=== PATIENT | male | born 1980 | race Caucasian/White ===

== ENCOUNTER 2017-09-01 19:12 | Emergency (ER) | payer BC ==
[2017-09-01 19:34] VITALS: BP 140/95
--- NOTE | 2017-09-01 20:29 | ER Document Report ---
HPI - HPI Pain Level: 3 Notes: Patient is a 36-year-old male who presents the ED complaining of nose pain and facial pain status post injury about 2 hours ago. Patient states that he was playing football and he hit his face against the back of someone's head. Patient denies any loss of consciousness, nausea/vomiting. Patient states that he did have a bloody nose which she has since controlled without any difficulties. Patient states that he does have a mild headache, but most of his pain is around his nasal bone. Patient states that he is still eating and drinking without any difficulties. He is still ambulating without any trouble as well. He has not had any changes in behavior or memory. No other concerns or complaints. No other significant past medical history. Patient is not on any blood thinners. Denies any fever, neck pain, changes in vision/speech/ mentation/hearing/behavior, URI, sore throat, chest pain, palpitations, syncope , cough, shortness of breath, wheeze, dyspnea, abdominal pain, nausea/vomiting/ diarrhea, urinary retention, dysuria, hematuria, loss of control of bowel or bladder, numbness/tingling, saddle anesthesia, muscle paralysis/weakness, or rash. - ROS Notes: REVIEW OF SYSTEMS: CONSTITUTIONAL : Denies fever, chills, or sweats. Denies recent illness. EENT: see hpi CARDIOVASCULAR: Denies chest pain. Denies palpitations or racing or irregular heart beat. Denies ankle edema. RESPIRATORY: Denies cough, cold, or chest congestion. Denies shortness of breath, difficulty breathing, or wheezing. GASTROINTESTINAL: Denies abdominal pain or distention. Denies nausea, vomiting , or diarrhea. Denies blood in vomitus, stools, or per rectum. Denies black, tarry stools. Denies constipation. GENITOURINARY: Denies difficulty urinating, painful urination, burning, frequency, blood in urine, or discharge. MUSCULOSKELETAL: see hpi SKIN: Denies rash, lesions or sores. NEUROLOGICAL: Denies confusion or altered mental status. Denies passing out or loss of consciousness. Denies dizziness or lightheadedness. Denies headache. Denies weakness or paralysis or loss of use of either side. Denies problems with gait or speech. Denies sensory loss, numbness, or tingling. Denies seizures. PSYCHIATRIC: Denies anxiety or stress. Denies depression, suicidal ideation, or homicidal ideation. ALL OTHER SYSTEMS REVIEWED AND NEGATIVE. Dictation was performed using [employer] voice recognition software - DERM Skin Color: Normal, [place] Past Medical History - Social History Smoking Status: Unknown if Ever Smoked Family History: Reviewed & Not Pertinent Patient has suicidal ideation: No Patient has homicidal ideation: No - Past Medical History Cardiac Medical History: Reports: Hx Hypertension - Off-and-on, no medication Renal/ Medical History: Denies: Hx Peritoneal Dialysis - Immunizations Hx Diphtheria, Pertussis, Tetanus Vaccination: Yes Vertical Provider Document - CONSTITUTIONAL Agree With Documented VS: Yes Notes: PHYSICAL EXAMINATION: GENERAL: Well-appearing, well-nourished and in no acute distress. A&Ox4. Appears comfortable. HEAD: see face exam. Non-tender to scalp/head. No sotelo sign. EYES: Pupils equal round and reactive to light, extraocular movements intact, sclera anicteric, conjunctiva are normal. Non-tender to palpation of the eyes. + tenderness to the L>R orbit. No obvious step-offs. ENT: EAC clear b/l. TM's intact b/l without erythema, fluid, or perforation. Nares patent and with nonactive bloody discharge. oropharynx clear without exudates. No tonsilar hypertrophy or erythema. Moist mucous membranes. No sinus tenderness. No hemotympanum/CSF discharge. Face: see eye exam as well. + ecchymosis to the nasal bone. + tenderness to the L>R maxillary. No obvious step-offs appreciated. NECK: Normal range of motion, supple without lymphadenopathy. No rigidity. No midline tenderness. Spurling negative. NEXUS negative. Chest: No flail chest. equal rise/fall. Non-tender LUNGS: Breath sounds clear to auscultation bilaterally and equal. No wheezes rales or rhonchi. HEART: Regular rate and rhythm without murmurs, rubs, gallops. Musculoskeletal: Ext b/l: FROM to passive/active. Strength 5+/5. No deficits noted. No bony tenderness of extremities. Back: FROM to passive/active. Strength 5+/5. No vertebral point tenderness, stepoffs, or deformities. No other bony tenderness or ecchymosis. Extremities: No cyanosis, clubbing, or edema b/l. Peripheral pulses 2+. Capillary refill less than 2 seconds. NEUROLOGICAL: NIH 0. MMSE intact. Cranial nerves grossly intact. Normal speech, normal gait. Normal sensory, motor exams. Reflexes 2+ b/l. JOHN's negative. Pronator drift negative. Heel/lizama, finger/nose wnl. Walking on heels /toes and heel to toe wnl. PSYCH: Normal mood, normal affect. SKIN: see exams above. Warm, Dry, normal turgor, no rashes or lesions noted. - INFECTION CONTROL TRAVEL OUTSIDE OF THE [place] IN LAST 30 DAYS: No Course - Re-evaluation Re-evalutation: 09/01/17 22:50 Patient is an afebrile, well-hydrated, 36-year-old male who presents the ED with nasal bone fracture. Vitals are stable. PE is otherwise unremarkable for any focal neurological deficits. CT scan of the face shows a comminuted nasal bone fracture with mild displacement. Low suspicion for any penetrating globe injury, retinal detachment, compartment syndrome of the eye, acute glaucoma, temporal arteritis, meningitis, intracranial hemorrhage, ischemic stroke, or fracture at this time. Patient is aware that his condition can change from initial presentation and that he needs to monitor symptoms closely for any acute changes. I will send him home with a prophylactic antibiotic as precaution. Recheck with ENT next week. Recheck with your PCM next week. Return to the ED with any worsening/concerning symptoms otherwise as reviewed discharge. Patient is in agreement. - Vital Signs Vital signs: Temp Pulse Resp BP Pulse Ox 98.7 F 117 H 16 140/95 H 09/01/17 19:22 09/01/17 19:22 09/01/17 19:22 09/01/17 19:22 Discharge - Discharge Clinical Impression: Fracture closed, nasal bone Qualifiers: Encounter type: initial encounter Qualified Code(s): S02.2XXA - Fracture of nasal bones, initial encounter for closed fracture Condition: Stable Disposition: HOME, SELF-CARE Instructions: Fracture of the Nose ([facility]) Additional Instructions: Rest, Ice Tylenol/ibuprofen as needed Monitor for any acute changes in your symptoms F/u with your PCP in 3-5 days for a recheck Recheck with ENT next week* Return to the ED with any worsening symptoms and/or development of fever, headache, chest pain, palpitations, syncope, shortness of breath, trouble breathing, abdominal pain, n/v/d, blood in stool/urine, loss of control of bowel /bladder, urinary retention, muscle weakness/paralysis, saddle anesthesia, numbness/tingling, or other worsening symptoms that are concerning to you. Prescriptions: Amoxicillin Trihydrate [Amoxil 875 mg Tablet] 1 tab PO BID #10 tablet Forms: Elevated Blood Pressure Referrals: GLENNA GUTIERREZ MD [ACTIVE STAFF] - Follow up in 3-5 days ENT [Provider Group] - Follow up in 3-5 days
--- NOTE | 2017-09-01 20:46 | RADIOLOGY REPORT (SQ) ---
EXAM DESCRIPTION: CT FACIAL AREA WITHOUT COMPLETED DATE/TIME: 09/01/2017 8:37 pm REASON FOR STUDY: orbit/maxillar/nasal bone tenderness s/p injury COMPARISON: None. TECHNIQUE: Noncontrasted images through the facial bones and orbits windowed for bone and soft tissu e. Additional coronal and sagittal reconstructed images reviewed. All images stored on PACS. All CT scanners at this facility use dose modulation, iterative reconstruction, and/or weight based d osing when appropriate to reduce radiation dose to as low as reasonably achievable (ALARA). [facility]: Dose Right [facility]: CareDose [facility]: Dose Right [facility]: Teradose 4D [facility]: [employer] RADIATION DOSE: Up-to-date CT equipment and radiation dose reduction techniques were employed. CTDIv ol: 30.4 mGy. DLP: 642 mGy-cm. mGy. LIMITATIONS: None. FINDINGS: FACIAL BONES: Mildly displaced comminuted fractures are seen of the nasal bones. The valerie ining facial bones remain intact. ORBITS: Intact. No fracture. Symmetric intact globes and retroorbital soft tissues. PARANASAL SINUSES: Clear. No significant mucosal thickening, mass or fluid. No nasal polyps. Maxill clarissa sinus outlets are patent. SOFT TISSUES: No mass or edema. INFERIOR BRAIN: Limited view. No acute findings. OTHER: No other significant finding. IMPRESSION: Mildly displaced comminuted fractures of the nasal bones. TECHNICAL DOCUMENTATION: JOB ID: [id number] Quality ID # [id number]: Final reports with documentation of one or more dose reduction techniques (e.g., Au tomated exposure control, adjustment of the mA and/or kV according to patient size, use of iterative reconstruction technique) 2010 [employer]- All Rights Reserved
== END 2017-09-01 22:57 | disposition home or self-care (01) ==
LOC: ER 19:12
DX: S02.2XXA Fracture of nasal bones, initial encounter for closed fracture (principal); W51.XXXA Accidental striking against or bumped into by another person, initial encounter; Y93.61 Activity, american tackle football; Y92.009 Unspecified place in unspecified non-institutional (private) residence as the place of occurrence of the external cause; R51 Headache; I10 Essential (primary) hypertension
CPT/HCPCS: 70486; 99283

== ENCOUNTER 2018-10-06 20:22 | Emergency (ER) | payer BC ==
[2018-10-06] MEDS ORDERED: NORMAL SALINE 1000 ML 1,000 ML IV ONE (21:09)
[2018-10-06] MEDS ORDERED: DIAZEPAM 5 MG TABLET PO ONE (21:14)
--- NOTE | 2018-10-06 21:39 | ER Document Report ---
ED General - General Chief Complaint: Arm Pain Stated Complaint: ARM PAIN Time Seen by Provider: 10/06/18 21:02 Mode of Arrival: Ambulatory Information source: Patient TRAVEL OUTSIDE OF THE [place] IN LAST 30 DAYS: No - HPI Notes: 37-year-old well-appearing male with a history of DVT and PE who presents to the emergency department for right forearm pain that got worse today. He says the arm "feels fat and I cannot feel bone ". Trauma. Endorses that he has had tingling and burning for the last few weeks when he is sleeping or when he raises his hands over his head but he had a sudden onset of severe pain today with some forearm swelling. He said when the BP cuff inflated it made the pain much worse. He denies any fever, chills, or any other constitutional symptoms. He denies shortness of breath. - Related Data Allergies/Adverse Reactions: diphenhydramine HCl [From Benadryl] Allergy (Verified 10/06/18 22:44) strawberry Allergy (Verified 10/06/18 22:44) Past Medical History - Social History Smoking Status: Current Every Day Smoker Chew tobacco use (# tins/day): No Frequency of alcohol use: None Drug Abuse: None Family History: Reviewed & Not Pertinent Patient has suicidal ideation: No Patient has homicidal ideation: No - Past Medical History Cardiac Medical History: Reports: Hx Hypertension - Off-and-on, no medication Pulmonary Medical History: Reports: Hx Asthma Renal/ Medical History: Denies: Hx Peritoneal Dialysis - Immunizations Hx Diphtheria, Pertussis, Tetanus Vaccination: Yes Review of Systems - Review of Systems Constitutional: No symptoms reported EENT: No symptoms reported Cardiovascular: No symptoms reported. denies: Chest pain Respiratory: No symptoms reported. denies: Short of breath Gastrointestinal: No symptoms reported Genitourinary: No symptoms reported Male Genitourinary: No symptoms reported Musculoskeletal: denies: Muscle pain - Right forearm volar aspect, medial Skin: No symptoms reported Hematologic/Lymphatic: No symptoms reported Neurological/Psychological: No symptoms reported Physical Exam - Vital signs Interpretation: Normal - General General appearance: Appears well, Alert - HEENT Head: Normocephalic, Atraumatic Eyes: Normal Pupils: PERRL - Respiratory Respiratory status: No respiratory distress Chest status: Nontender Breath sounds: Normal Chest palpation: Normal - Cardiovascular Rhythm: Regular Heart sounds: Normal auscultation Murmur: No - Abdominal Inspection: Normal Distension: No distension Bowel sounds: Normal Tenderness: Nontender Organomegaly: No organomegaly - Back Back: Normal, Nontender - Extremities General upper extremity: Normal color, Normal ROM, Normal temperature General lower extremity: Normal inspection, Nontender, Normal color, Normal ROM , Normal temperature, Normal weight bearing. No: Carrie's sign Forearm: Tender - Tender to light palpation, forearm appears with some edema compared to left forearm. Distal pulses intact. Cap refill less than 2 seconds. SILT. - Neurological Neuro grossly intact: Yes Cognition: Normal Orientation: AAOx4 [place] Coma Scale Eye Opening: Spontaneous Martha Coma Scale Verbal: Oriented [place] Coma Scale Motor: Obeys Commands Martha Coma Scale Total: 15 Speech: Normal Motor strength normal: LUE, RUE, LLE, RLE Sensory: Normal - Psychological Associated symptoms: Normal affect, Normal mood - Skin Skin Temperature: Warm Skin Moisture: Dry Skin Color: Normal Course - Re-evaluation Re-evalutation: 10/06/18 22:[address] Haney. Plan to order a venous Doppler right upper extremity. 10/06/18 22:21 Went and discussed with patient that plan is to order a right upper extremity venous Doppler. Patient endorsed discomfort in the arm. Ordered Tylenol 975 mg p.o. 10/07/18 00:00 No evidence of DVT right upper extremity. Will discuss with patient that his numbness and tingling is most likely secondary to musculoskeletal pain, probably related to muscle inflammation impinging on a nerve. Discharge - Discharge Clinical Impression: Arm pain Qualifiers: Laterality: right Qualified Code(s): M79.601 - Pain in right arm Condition: Good Disposition: HOME, SELF-CARE Instructions: Arm Pain, Nonspecific ([facility]) Additional Instructions: Seen in the emergency department today for right arm pain. Because of your history of DVT and PE we got the Doppler which was negative. That is reassuring. Your pain most likely stems from your right shoulder nerve is impinged. It is okay to take ibuprofen 800 mg 4 times a day, and Tylenol 1000 mg up to 4 times a day for pain. If your arm becomes swollen, turns blue, gets cold to the touch, or urine excruciating pain please immediately return to the emergency room.
[2018-10-06] MEDS ORDERED: ACETAMINOPHEN 325 MG TABLET PO ONE (22:20)
[2018-10-07 00:19] VITALS: BP 140/75
--- NOTE | 2018-10-07 07:48 | RADIOLOGY REPORT (SQ) ---
EXAM DESCRIPTION: VENOUS UNILATERAL UPPER COMPLETED DATE/TIME: 10/06/2018 11:54 pm REASON FOR STUDY: pain and swelling COMPARISON: None. TECHNIQUE: Dynamic and static guillen scale and color images acquired of the right arm venous system. S elected spectral images acquired with additional compression and augmentation maneuvers. The contrala teral subclavian vein and internal jugular vein were also imaged. Images stored on PACS. LIMITATIONS: None. FINDINGS: INTERNAL JUGULAR VEIN: Normal phasicity, compression, augmentation. No visualized echogeni c material on guillen scale. No defects on color images. Comparison opposite side normal. SUBCLAVIAN VEIN: Normal compression, augmentation. No visualized echogenic material on guillen scale. No defects on color images. AXILLARY VEIN: Normal compression, augmentation. No visualized echogenic material on guillen scale. No d efects on color images. BRACHIAL VEIN: Normal compression, augmentation. No visualized echogenic material on guillen scale. No d efects on color images. BASILIC VEIN: Normal compression, augmentation. No visualized echogenic material on guillen scale. No de fects on color images. CEPHALIC VEIN: Normal compression, augmentation. No visualized echogenic material on guillen scale. No d efects on color images. OTHER: No other significant finding. CONTRALATERAL SUBCLAVIAN VEIN AND INTERNAL JUGULAR VEIN: Normal phasicity, compression and augmentation. No visualized echogenic material on guillen scale. No de fects on color images. IMPRESSION: 1. NO EVIDENCE DVT OR SVT RIGHT ARM. TECHNICAL DOCUMENTATION: JOB ID: [id number] [employer]- All Rights Reserved Reading location - IP/workstation name: [email or web address]
== END 2018-10-07 00:18 | disposition home or self-care (01) ==
LOC: ER 20:22
DX: M79.18 Myalgia, other site (principal); R20.2 Paresthesia of skin; R20.0 Anesthesia of skin; R20.8 Other disturbances of skin sensation; I10 Essential (primary) hypertension; J45.909 Unspecified asthma, uncomplicated; F17.200 Nicotine dependence, unspecified, uncomplicated; Z86.718 Personal history of other venous thrombosis and embolism; Z88.8 Allergy status to other drugs, medicaments and biological substances; Z91.018 Allergy to other foods
CPT/HCPCS: 93971; 99284

== ENCOUNTER 2018-12-14 11:58 | Inpatient (IN) | payer BC ==
[2018-12-14] MEDS ORDERED: DILTIAZEM HCL INJ 25 MG/5 ML VIAL ONE (12:17)
[2018-12-14] MEDS ORDERED: ADENOSINE INJ/PF 6 MG/2 ML SDV IV ONE ×3 (12:17→12:32)
[2018-12-14] MEDS ORDERED: ASPIRIN 81 MG TABLET, CHEWABLE PO ONE (12:18)
[2018-12-14] MEDS ORDERED: DILTIAZEM HCL/D5W 125 MG/125 ML RTUINJ IV ONE (12:20)
[2018-12-14] MEDS ORDERED: DILTIAZEM HCL/D5W 125 MG/125 ML RTUINJ IV PRN (12:21)
[2018-12-14] MEDS ORDERED: DILTIAZEM HCL INJ 25 MG/5 ML VIAL IV ONE (12:21)
[2018-12-14 12:47] LABS: ABSOLUTE BASOPHILS # (AUTO) 0.1 10^3/uL (0.0-0.2); ABSOLUTE EOSINOPHILS # (AUTO) 0.2 10^3/uL (0.0-0.6); ABSOLUTE LYMPHOCYTES (AUTO) 5.1 10^3/uL (0.5-4.7); ABSOLUTE MONOCYTES (AUTO) 0.8 10^3/uL (0.1-1.4); ABSOLUTE NEUT (AUTO) 3.6 10^3/uL (1.7-8.2); BASOPHILS % (AUTO) 0.7 % (0-2); EOSINOPHILS % (AUTO) 2.3 % (0-6); HEMOGLOBIN 17.3 g/dL (13.5-17.0); LYMPHOCYTES % (AUTO) 51.5 % (13-45); MEAN CORPUSCULAR HEMOGLOBIN 29.7 pg (27.0-33.4); MEAN CORPUSCULAR HGB CONC 34.6 g/dL (32.0-36.0); MEAN CORPUSCULAR VOLUME 86 fl (80-97); MONOCYTES % (AUTO) 8.4 % (3-13); PLATELET COUNT 326 10^3/uL (150-450); RED BLOOD COUNT 5.82 10^6/uL (4.35-5.55); RED CELL DISTRIBUTION WIDTH 12.7 % (11.5-14.0); SEGMENTED NEUTROPHILS % (AUTO) 37.1 % (42-78); TOTAL CELLS COUNTED % (AUTO) 100 %; WHITE BLOOD COUNT 9.8 10^3/uL (4.0-10.5)
[2018-12-14 12:54] LABS: INTERNATIONAL RATION (INR) 0.89; PARTIAL THROMBOPLASTIN TIME 29.4 SEC (23.5-35.8); PROTHROMBIN TIME 12.5 SEC (11.4-15.4)
--- NOTE | 2018-12-14 13:02 | RADIOLOGY REPORT (SQ) ---
EXAM DESCRIPTION: CHEST SINGLE VIEW COMPLETED DATE/TIME: 12/14/2018 12:35 pm REASON FOR STUDY: svt COMPARISON: Two-view chest 12/12/2013 EXAM PARAMETERS: NUMBER OF VIEWS: One view. TECHNIQUE: Single frontal radiographic view of the chest acquired. RADIATION DOSE: NA LIMITATIONS: None. FINDINGS: LUNGS AND PLEURA: No opacities, masses or pneumothorax. No pleural effusion. MEDIASTINUM AND HILAR STRUCTURES: No masses. Contour normal. HEART AND VASCULAR STRUCTURES: Heart normal in size. Normal vasculature. BONES: No acute findings. HARDWARE: None in the chest. OTHER: No other significant finding. IMPRESSION: NO ACUTE RADIOGRAPHIC FINDING IN THE CHEST. TECHNICAL DOCUMENTATION: JOB ID: [id number] [employer]- All Rights Reserved Reading location - IP/workstation name: [email or web address]
[2018-12-14 13:10] LABS: ALANINE AMINOTRANSFERASE 35 U/L (21-72); ALBUMIN 4.8 g/dL (3.5-5.0); ALKALINE PHOSPHATASE 98 U/L (38-126); ANION GAP 9 (5-19); ASPARTATE AMINO TRANSFERASE 30 U/L (17-59); BILIRUBIN,DIRECT 0.3 mg/dL (0.0-0.4); BILIRUBIN,TOTAL 1.4 mg/dL (0.2-1.3); BLOOD UREA NITROGEN 20 mg/dL (7-20); CALCIUM 9.3 mg/dL (8.4-10.2); CARBON DIOXIDE 24 mmol/L (22-30); CHLORIDE 110 mmol/L (98-107); CREATINE KINASE 177 U/L (55-170); GLUCOSE 108 mg/dL (75-110); LIPASE 140.7 U/L (23-300); POTASSIUM 4.2 mmol/L (3.6-5.0); SODIUM 142.6 mmol/L (137-145)
[2018-12-14 13:22] LABS: CREATINE KINASE MB 1.33 ng/mL (<4.55)
[2018-12-14 13:24] LABS: TROPONIN I < 0.012 ng/mL
[2018-12-14 13:26] LABS: FREE T4 (FREE THYROXINE) 1.42 ng/dL (0.78-2.19)
[2018-12-14 13:40] LABS: THYROID STIMULATING HORMONE 1.38 uIU/mL (0.47-4.68)
[2018-12-14 13:47] LABS: APPEARANCE,URINE CLEAR; BILIRUBIN,URINE NEGATIVE (NEGATIVE); COLOR,URINE STRAW; GLUCOSE, URINE NEGATIVE (NEGATIVE); KETONES,URINE NEGATIVE (NEGATIVE); LEUKOCYTE ESTERASE,URINE NEGATIVE (NEGATIVE); NITRITE,URINE NEGATIVE (NEGATIVE); PROTEIN,URINE NEGATIVE (NEGATIVE); URINE SPECIFIC GRAVITY 1.005; UROBILINOGEN,URINE NEGATIVE mg/dL (<2.0)
[2018-12-14 13:59] LABS: URINE AMPHETAMINES SCREEN NEGATIVE; URINE BARBITURATES SCREEN NEGATIVE; URINE BENZODIAZEPINES SCREEN NEGATIVE; URINE COCAINE SCREEN NEGATIVE; URINE MARIJUANA (THC) SCREEN NEGATIVE; URINE METHADONE SCREEN NEGATIVE; URINE PHENCYCLIDINE SCREEN NEGATIVE
--- NOTE | 2018-12-14 14:33 | RADIOLOGY REPORT (SQ) ---
EXAM DESCRIPTION: CTA CHEST COMPLETED DATE/TIME: 12/14/2018 2:03 pm REASON FOR STUDY: cp svt sob . Shortness of breath, chest pain. COMPARISON: Chest x-ray 12/14/2018. CT abdomen and pelvis 12/13/2013. TECHNIQUE: CT scan of the chest performed using helical scanning technique with dynamic intravenous contrast injection. Images reviewed with lung, soft tissue and bone windows. Reconstructed coronal and sagittal MPR images reviewed. Additional 3 dimensional post-processing performed to develop Maximal Intensity Projection images (FL P). All images stored on PACS. All CT scanners at this facility use dose modulation, iterative reconstruction, and/or weight based d osing when appropriate to reduce radiation dose to as low as reasonably achievable (ALARA). [facility]: Dose Right [facility]: CareDose [facility]: Dose Right [facility]: Teradose 4D [facility]: [employer] CONTRAST TYPE AND DOSE: contrast/concentration: Isovue 350.00 mg/ml; Total Contrast Delivered: 90.0 ml; Total Saline Delivered: 110.0 ml Contrast bolus optimized for the pulmonary arteries. Not diagnostic for the aorta. RENAL FUNCTION: Creatinine 1.03 RADIATION DOSE: CT Rad equipment meets quality standard of care and radiation dose reduction techniq ues were employed. CTDIvol: 32.5 - 49.6 mGy. DLP: 1375 mGy-cm. . LIMITATIONS: None. FINDINGS: LUNGS AND PLEURA: No consolidation, pneumothorax or pleural effusion. There is mild diffu se septal thickening at the right upper lobe. AORTA AND GREAT VESSELS: No thoracic aortic aneurysm. Contrast bolus not optimized for the aorta. HEART: No pericardial effusion. Scattered coronary artery calcifications. PULMONARY ARTERIES: No emboli visualized in the main pulmonary arteries or the segmental branches. HILAR AND MEDIASTINAL STRUCTURES: No identified masses or abnormal nodes. HARDWARE: None in the chest. UPPER ABDOMEN: No significant findings. Limited exam. BONES: No acute findings. 3D MIPS: Confirm above findings. IMPRESSION: No pulmonary emboli. Mild diffuse septal thickening at the right upper lobe, may be sec ondary to interstitial edema or pneumonitis. COMMENT: Quality ID # [id number]: Final reports with documentation of one or more dose reduction techniques (e.g., Automated exposure control, adjustment of the mA and/or kV according to patient size, use of iterative reconstruction technique) TECHNICAL DOCUMENTATION: JOB ID: [id number]- All Rights Reserved Reading location - IP/workstation name: [email or web address]
[2018-12-14] MEDS ORDERED: DILTIAZEM HCL 60 MG TABLET PO ONE (14:40)
--- NOTE | 2018-12-14 14:48 | ER Document Report ---
ED General - General Chief Complaint: Chest Pain Stated Complaint: CHEST PAIN Time Seen by Provider: 12/14/18 12:18 TRAVEL OUTSIDE OF THE [place] IN LAST 30 DAYS: No - HPI Patient complains to provider of: Chest pain Notes: Patient coming in for evaluation of chest pain. Patient states he was at work when he started feeling unwell pain in his chest. Patient also states mild shor tness of breath. Patient in triage area was found to have a heart rate of 240. Patient was brought back to the ER for further evaluation. Upon entrance into the trauma bay #2 patient slightly tachypneic stating that he still having mild chest pain denies any trauma denies any fever chills nausea vomiting diarrhea states he has a history of PE in 2007 due to a DVT patient states he was on Lovenox shots and then transitioned over the Coumadin for a brief period of time. Patient denies any recent travel denies any excessive caffeine use denies any illicit drug use. IVs were established blood pressure seems to be stable at this time patient underwent multiple vagal maneuvers with no conversion therefore adenosine was administered - Related Data Allergies/Adverse Reactions: diphenhydramine HCl [From Benadryl] Allergy (Verified 12/14/18 14:49) strawberry Allergy (Verified 12/14/18 14:49) Past Medical History - Social History Smoking Status: Current Every Day Smoker Family History: Reviewed & Not Pertinent Patient has suicidal ideation: No Patient has homicidal ideation: No - Past Medical History Cardiac Medical History: Reports: Hx Hypertension - Off-and-on, no medication Pulmonary Medical History: Reports: Hx Asthma Renal/ Medical History: Denies: Hx Peritoneal Dialysis - Immunizations Hx Diphtheria, Pertussis, Tetanus Vaccination: Yes Review of Systems - Review of Systems Constitutional: No symptoms reported EENT: No symptoms reported Cardiovascular: Chest pain, Dyspnea Respiratory: No symptoms reported Gastrointestinal: No symptoms reported Genitourinary: No symptoms reported Male Genitourinary: No symptoms reported Musculoskeletal: No symptoms reported Skin: No symptoms reported Hematologic/Lymphatic: No symptoms reported Neurological/Psychological: No symptoms reported -: Yes All other systems reviewed and negative Physical Exam - Vital signs Vitals: Pulse Ox 99 12/14/18 12:12 Interpretation: Tachycardic - General General appearance: Appears well, Alert - HEENT Head: Normocephalic, Atraumatic Eyes: Normal Pupils: PERRL - Respiratory Respiratory status: No respiratory distress Chest status: Nontender Breath sounds: Normal Chest palpation: Normal - Cardiovascular Rhythm: Tachycardia Heart sounds: Normal auscultation Murmur: No - Abdominal Inspection: Normal Distension: No distension Bowel sounds: Normal Tenderness: Nontender Organomegaly: No organomegaly - Back Back: Normal, Nontender - Extremities General upper extremity: Normal inspection, Nontender, Normal color, Normal ROM, Normal temperature General lower extremity: Normal inspection, Nontender, Normal color, Normal ROM, Normal temperature, Normal weight bearing. No: Carrie's sign - Neurological Neuro grossly intact: Yes Cognition: Normal Orientation: AAOx4 [place] Coma Scale Eye Opening: Spontaneous [place] Coma Scale Verbal: Oriented Martha Coma Scale Motor: Obeys Commands Martha Coma Scale Total: 15 Speech: Normal Motor strength normal: LUE, RUE, LLE, RLE Sensory: Normal - Psychological Associated symptoms: Normal affect, Normal mood - Skin Skin Temperature: Warm Skin Moisture: Dry Skin Color: Normal Course - Re-evaluation Re-evalutation: 12/14/18 15:26 Administration of adenosine 6 mg followed by 12 mg that showed underlying atrial fibrillation with no conversion patient started on Cardizem drip with bolus 25 mg rate control was obtained with this measure. Patient laboratory studies to obtain consultation with hemoglobin 17 however it looks lites are negative troponin negative drug screen TSH free T4 and CTA of the patient's chest were all negative. Discussed with hospitalist team Dr. Woods we will send the patient for further evaluation agrees with peligio Prui at this time as patient has been stable and titration down off his Cardizem drip - Vital Signs Vital signs: Temp Pulse Resp BP Pulse Ox 97.3 F 9 L 136/99 H 97 12/14/18 12:28 12/14/18 12:42 12/14/18 12:42 12/14/18 12:42 - Laboratory Result Diagrams: 12/14/18 12:22 12/14/18 12:22 Laboratory results interpreted by me: 12/14/18 12/14/18 12:22 12:22 RBC 5.82 H Hgb 17.3 H Seg Neutrophils % 37.1 L Lymphocytes % 51.5 H Absolute Lymphocytes 5.1 H Chloride 110 H Total Bilirubin 1.4 H Creatine Kinase 177 H Discharge - Discharge Clinical Impression: New onset a-fib Chest pain Qualifiers: Chest pain type: unspecified Qualified Code(s): R07.9 - Chest pain, unspecified Condition: Good Disposition: ADMITTED INPATIENT Admitting Provider: Hospitalist - [facility] Unit Admitted: Telemetry
[2018-12-14] MEDS ORDERED: PROMETHAZINE HCL 25 MG TABLET PO PRN (16:11)
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
[2018-12-14] MEDS: METOPROLOL TARTRATE 25 MG TABLET PO SCH (18:00)
--- NOTE | 2018-12-14 19:51 | XCELERA REPORT ---
[address] [address] Transthoracic Echocardiogram Report Name: LORENA BURGESS Age: 37 yrs Gender: Male : 1980 Patient Status: Inpatient Patient Location: [place] [address]^A Study Date: 12/14/2018 05:02 PM Height: 76 in Weight: 299 lb BSA: 2.6 m2 Reason For Study: Afib Ordering Physician: RENE HERNANDEZ Performed By: Tyshawn Wright Interpretation Summary Technoligist Comments: patient difficult to scan due to labored breathing, apicals difficult to obtain, tried breathing techniques and different positioning. Lack of contrast enhancement limits interpretation for thrombus, wall motion and accurate estimation of LVEF. Study quality suboptimal with many poor images [id number] detailed cardiac evaluation. LV not well visualized but LVEF apppears normal at 60-65%. RV systolic function appears normal. The aortic valve opens well. RVSP could not be estimated. Pericardium not well visualized but no obvious pericardial effusion noted. IVC not well visualized but likely normal sized. The aortic root is normal size. MMode/2D Measurements & Calculations RVDd: 3.4 cm LVIDd: 4.6 cm FS: 45.3 % Ao root diam: 3.8 cm IVSd: 1.1 cm LVIDs: 2.5 cm EDV(Teich): 97.2 mlAo root area: LVPWd: 1.1 cm ESV(Teich): 22.6 ml 11.1 cm2 EF(Teich): 76.7 % LA dimension: 3.8 cm LVOT diam: 2.3 cmLVLd ap4: 9.3 cm SV(MOD-sp4): LVOT area: EDV(MOD-sp4): 80.0 ml 137.0 ml 4.1 cm2 LVLs ap4: 8.4 cm ESV(MOD-sp4): 57.0 ml EF(MOD-sp4): 58.4 % Doppler Measurements & Calculations MV E max tierney: MV P1/2t max tierney: Ao V2 max: LV V1 max P.1 cm/sec 114.7 cm/sec 91.6 cm/sec 2.7 mmHg MV A max tierney: MV P1/2t: 47.1 msec Ao max P.4 mmHgLV V1 mean P.0 cm/sec MVA(P1/2t): 4.7 cm2 Ao V2 mean: 1.6 mmHg MV E/A: 1.8 MV dec slope: 66.8 cm/sec LV V1 max: Ao mean P.9 cm/sec 712.7 cm/sec2 2.0 mmHg LV V1 mean: MV dec time: 0.14 sec Ao V2 VTI: 17.7 cm 57.9 cm/sec JUANITA(I,D): 3.7 cm2 LV V1 VTI: 15.9 cm JUANITA(V,D): 3.7 cm2 SV(LVOT): 65.8 ml PA V2 max: MV P1/2t-pr_phl: 101.7 cm/sec 47.1 msec PA max P.1 mmHg Left Ventricle LV not well visualized but LVEF appaers normal at 60-65%. The left ventricular ejection fraction is normal. Right Ventricle The right ventricular systolic function is normal. Atria Right atrium not well visualized secondary to technical limitations. The left atrium is not well visualized secondary to technical limitations. Mitral Valve MV leaflets not well visualized but MV appears to open well. Aortic Valve The aortic valve is not well visualized secondary to technical limitations. The aortic valve opens well. There is a peak gradient of 3 mm of Hg. Tricuspid Valve The tricuspid valve is not well visualized secondary to technical limitations. Tricuspid regurgitation jet envelope not well defined to measure RV systolic pressure accurately. RVSP could not be estimated. Pulmonic Valve The pulmonic valve is not well visualized. Great Vessels The aortic root is normal size. The aortic root is not well visualized. IVC not well visualized but likely normal sized. Effusions Pericardium not well visualized but no obvious pericardial effusion noted. : RENE HERNANDEZ > Luis Montano
--- NOTE | 2018-12-14 21:39 | EKG REPORT ---
SEVERITY:- ABNORMAL ECG - ATRIAL FIBRILLATION, V-RATE 75-174 NONSPECIFIC REPOL ABNORMALITY, LATERAL LEADS : Confirmed by: Alona Beavers MD 14-Dec-2018 21:38:47
--- NOTE | 2018-12-14 21:39 | EKG REPORT ---
SEVERITY:- ABNORMAL ECG - SUPRAVENTRICULAR TACHYCARDIA REPOLARIZATION ABNORMALITY, PROB RATE RELATED : Confirmed by: Alona Beavers MD 14-Dec-2018 21:38:55
--- NOTE | 2018-12-14 21:39 | EKG REPORT ---
SEVERITY:- NORMAL ECG - SINUS RHYTHM : Confirmed by: Alona Beavers MD 14-Dec-2018 21:38:43
[2018-12-14] MEDS: FAMOTIDINE 20 MG TABLET PO SCH (21:40)
[2018-12-14] MEDS: HEPARIN SOD (PORCINE) 5,000 UNIT/ML 1 ML SYRINGE SUBCUT SCH (21:41)
[2018-12-15] MEDS: HEPARIN SOD (PORCINE) 5,000 UNIT/ML 1 ML SYRINGE SUBCUT SCH (05:09)
[2018-12-15 05:50] LABS: ABSOLUTE EOSINOPHILS # (AUTO) 0.2 10^3/uL (0.0-0.6); ABSOLUTE LYMPHOCYTES (AUTO) 3.7 10^3/uL (0.5-4.7); ABSOLUTE MONOCYTES (AUTO) 0.5 10^3/uL (0.1-1.4); ABSOLUTE NEUT (AUTO) 2.8 10^3/uL (1.7-8.2); BASOPHILS % (AUTO) 0.4 % (0-2); EOSINOPHILS % (AUTO) 3.2 % (0-6); HEMATOCRIT 42.2 % (37.9-51.0); LYMPHOCYTES % (AUTO) 50.6 % (13-45); MEAN CORPUSCULAR HEMOGLOBIN 30.3 pg (27.0-33.4); MEAN CORPUSCULAR HGB CONC 35.2 g/dL (32.0-36.0); MEAN CORPUSCULAR VOLUME 86 fl (80-97); MONOCYTES % (AUTO) 6.9 % (3-13); PLATELET COUNT 247 10^3/uL (150-450); RED CELL DISTRIBUTION WIDTH 12.8 % (11.5-14.0); SEGMENTED NEUTROPHILS % (AUTO) 38.9 % (42-78); TOTAL CELLS COUNTED % (AUTO) 100 %; WHITE BLOOD COUNT 7.2 10^3/uL (4.0-10.5)
[2018-12-15 05:59] LABS: HEMOGLOBIN 14.9 g/dL (13.5-17.0)
[2018-12-15 06:24] LABS: ALANINE AMINOTRANSFERASE 33 U/L (21-72); ALBUMIN 3.8 g/dL (3.5-5.0); ALKALINE PHOSPHATASE 72 U/L (38-126); ANION GAP 5 (5-19); ASPARTATE AMINO TRANSFERASE 21 U/L (17-59); BILIRUBIN,DIRECT 0.2 mg/dL (0.0-0.4); BILIRUBIN,TOTAL 1.1 mg/dL (0.2-1.3); BLOOD UREA NITROGEN 19 mg/dL (7-20); CALCIUM 8.8 mg/dL (8.4-10.2); CARBON DIOXIDE 24 mmol/L (22-30); CHLORIDE 112 mmol/L (98-107); CHOLESTEROL 151.38 mg/dL (0-200); GLUCOSE 96 mg/dL (75-110); POTASSIUM 4.4 mmol/L (3.6-5.0); SODIUM 141.1 mmol/L (137-145); TOTAL PROTEIN 6.4 g/dL (6.3-8.2); TRIGLYCERIDES 69 mg/dL (<150)
[2018-12-15 06:34] LABS: DIRECT LDL 116 mg/dL (<100)
--- NOTE | 2018-12-15 09:20 | PDOC PROGRESS REPORT ---
Subjective Progress Note for:: 12/15/18 Subjective:: Patient denies any overnight chest pain or palpitations. According to the staff patient converted to sinus rhythm sometime last evening. Overnight patient's cardiac biomarkers came elevated and we were notified this morning about positive troponin. Reason For Visit: NEW ONSET AFIB with elevated cardiac biomarkers Physical Exam Vital Signs: Temp Pulse Resp BP Pulse Ox 97.3 F 73 18 129/82 H 96 12/15/18 07:58 12/15/18 07:58 12/15/18 07:58 12/15/18 07:58 12/15/18 07:58 Intake & Output 12/14/18 12/15/18 12/16/18 06:59 06:59 06:59 Intake Total 50 Balance 50 Weight 137.1 kg General appearance: PRESENT: no acute distress Pulses: PRESENT: normal carotid pulses, normal radial pulses, normal femoral pulses, +2 pedal pulses bilateral Vascular exam: PRESENT: normal capillary refill GI/Abdominal exam: PRESENT: normal bowel sounds Musculoskeletal exam: PRESENT: ambulatory Neurological exam: PRESENT: alert, awake, oriented to person, oriented to place, oriented to time, oriented to situation Results Laboratory Results: 12/15/18 04:39 12/15/18 04:39 12/14/18 12/14/18 12/14/18 12:22 12:22 12:22 WBC 9.8 RBC 5.82 H Hgb 17.3 H Hct 50.0 MCV 86 MCH 29.7 MCHC 34.6 RDW 12.7 Plt Count 326 Seg Neutrophils % 37.1 L Lymphocytes % 51.5 H Monocytes % 8.4 Eosinophils % 2.3 Basophils % 0.7 Absolute Neutrophils 3.6 Absolute Lymphocytes 5.1 H Absolute Monocytes 0.8 Absolute Eosinophils 0.2 Absolute Basophils 0.1 Sodium 142.6 Potassium 4.2 Chloride 110 H Carbon Dioxide 24 Anion Gap 9 BUN 20 Creatinine 1.03 Est GFR ( Amer) > 60 Est GFR (Non-Af Amer) > 60 Glucose 108 Calcium 9.3 Magnesium 2.1 Total Bilirubin 1.4 H AST 30 ALT 35 Alkaline Phosphatase 98 Total Protein 8.0 Albumin 4.8 Triglycerides Cholesterol LDL Cholesterol Direct VLDL Cholesterol HDL Cholesterol Lipase 140.7 TSH 1.38 Free T4 1.42 Urine Color Urine Appearance Urine pH Ur Specific [place] Urine Protein Urine Glucose (UA) Urine Ketones Urine Blood Urine Nitrite Ur Leukocyte Esterase Urine WBC (Auto) Urine RBC (Auto) 12/14/18 12/15/18 12/15/18 13:27 04:39 04:39 WBC 7.2 RBC 4.90 Hgb 14.9 D Hct 42.2 MCV 86 MCH 30.3 MCHC 35.2 RDW 12.8 Plt Count 247 Seg Neutrophils % 38.9 L Lymphocytes % 50.6 H Monocytes % 6.9 Eosinophils % 3.2 Basophils % 0.4 Absolute Neutrophils 2.8 Absolute Lymphocytes 3.7 Absolute Monocytes 0.5 Absolute Eosinophils 0.2 Absolute Basophils 0.0 Sodium 141.1 Potassium 4.4 Chloride 112 H Carbon Dioxide 24 Anion Gap 5 BUN 19 Creatinine 0.96 Est GFR ( Amer) > 60 Est GFR (Non-Af Amer) > 60 Glucose 96 Calcium 8.8 Magnesium 2.3 Total Bilirubin 1.1 AST 21 ALT 33 Alkaline Phosphatase 72 Total Protein 6.4 Albumin 3.8 Triglycerides 69 Cholesterol 151.38 LDL Cholesterol Direct 116 H VLDL Cholesterol 14.0 HDL Cholesterol 28 L Lipase TSH Free T4 Urine Color STRAW Urine Appearance CLEAR Urine pH 6.0 Ur Specific [place] 1.005 Urine Protein NEGATIVE Urine Glucose (UA) NEGATIVE Urine Ketones NEGATIVE Urine Blood NEGATIVE Urine Nitrite NEGATIVE Ur Leukocyte Esterase NEGATIVE Urine WBC (Auto) 0 Urine RBC (Auto) 0 12/14/18 12/14/18 12/14/18 12:22 12:22 19:30 Creatine Kinase 177 H CK-MB (CK-2) 1.33 Troponin I < 0.012 1.180 Impressions: Chest X-Ray 12/14/18 12:19 IMPRESSION: NO ACUTE RADIOGRAPHIC FINDING IN THE CHEST. Chest/Abdomen CTA 12/14/18 12:24 IMPRESSION: No pulmonary emboli. Mild diffuse septal thickening at the right upper lobe, may be secondary to interstitial edema or pneumonitis. Assessment & Plan - Diagnosis (1) New onset a-fib Is this a current diagnosis for this admission?: Yes (2) Chest pain Qualifiers: Chest pain type: unspecified Qualified Code(s): R07.9 - Chest pain, unspecified (4) Tobacco abuse Is this a current diagnosis for this admission?: Yes - Notes Notes: 37-year-old male with past medical history of chronic nicotine abuse and family history of premature CAD with his father having heart attack in his 40s admitted with chest pain radiating to the jaw and some left arm numbness and initially found to be in SVT which converted to atrial fibrillation after adenosine and subsequently found to have elevated cardiac biomarkers. Cardiac tachyarrhythmias can lead to elevated cardiac biomarkers but however if he consider his family history and lifestyle he does have risk factors for atherosclerotic cardiovascular disease and in view of that it is important to rule out obstructive coronary artery disease despite his relatively young age. We discussed with the patient the risk and benefits of an invasive coronary workup with cardiac catheterization which will rule out obstructive coronary artery disease and patient has verbalized understanding of the risks/benefits and wants to proceed with invasive coronary workup. For now we will recommend to keep the patient on aspirin, add statin for risk factor reduction, beta- yvonne therapy and therapeutic Lovenox at this point of time until cardiac cath performed. Will consult with local bleach supervisor to arrange for cardiac catheterization at this facility or else transfer to another facility for the same. Dr. Beavers will resume cardiology care for patient from tomorrow onwards. - Time Time with patient: Greater than 35 minutes Smoking Education Provided: Over 3 minutes
[2018-12-15] MEDS: ASPIRIN 81 MG TABLET, CHEWABLE PO SCH (10:16)
[2018-12-15] MEDS: FAMOTIDINE 20 MG TABLET PO SCH ×2 (10:16→21:20)
[2018-12-15] MEDS: METOPROLOL TARTRATE 25 MG TABLET PO SCH ×2 (10:16→18:25)
[2018-12-15] MEDS: ATORVASTATIN CALCIUM 40 MG TABLET PO SCH (12:20)
[2018-12-15] MEDS: ENOXAPARIN SODIUM INJ 150 MG/1 ML DISP.SYRIN SUBCUT SCH ×2 (12:21→23:25)
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
[2018-12-16 00:07] LABS: CREATINE KINASE MB 1.03 ng/mL (<4.55); TROPONIN I 0.152 ng/mL
[2018-12-16 05:48] LABS: HEMATOCRIT 45.5 % (37.9-51.0); HEMOGLOBIN 15.8 g/dL (13.5-17.0); MEAN CORPUSCULAR HEMOGLOBIN 29.7 pg (27.0-33.4); MEAN CORPUSCULAR HGB CONC 34.8 g/dL (32.0-36.0); MEAN CORPUSCULAR VOLUME 85 fl (80-97); PLATELET COUNT 215 10^3/uL (150-450); RED BLOOD COUNT 5.34 10^6/uL (4.35-5.55); RED CELL DISTRIBUTION WIDTH 12.6 % (11.5-14.0); WHITE BLOOD COUNT 6.6 10^3/uL (4.0-10.5)
[2018-12-16 06:18] LABS: ALANINE AMINOTRANSFERASE 29 U/L (21-72); ALBUMIN 3.9 g/dL (3.5-5.0); ALKALINE PHOSPHATASE 72 U/L (38-126); ANION GAP 9 (5-19); ASPARTATE AMINO TRANSFERASE 19 U/L (17-59); BILIRUBIN,DIRECT 0.2 mg/dL (0.0-0.4); BILIRUBIN,TOTAL 1.1 mg/dL (0.2-1.3); BLOOD UREA NITROGEN 19 mg/dL (7-20); CALCIUM 8.9 mg/dL (8.4-10.2); CARBON DIOXIDE 23 mmol/L (22-30); CHLORIDE 111 mmol/L (98-107); CREATINE KINASE 81 U/L (55-170); GLUCOSE 98 mg/dL (75-110); POTASSIUM 4.6 mmol/L (3.6-5.0); SODIUM 143.1 mmol/L (137-145); TOTAL PROTEIN 6.6 g/dL (6.3-8.2)
[2018-12-16 06:20] LABS: CREATINE KINASE MB 0.84 ng/mL (<4.55); TROPONIN I 0.143 ng/mL
--- NOTE | 2018-12-16 07:27 | EKG REPORT ---
SEVERITY:- NORMAL ECG - SINUS RHYTHM : Confirmed by: Alona Beavers MD 16-Dec-2018 07:26:48
--- NOTE | 2018-12-16 07:27 | EKG REPORT ---
SEVERITY:- NORMAL ECG - SINUS RHYTHM : Confirmed by: Alona Beavers MD 16-Dec-2018 07:26:44
[2018-12-16] MEDS: ATORVASTATIN CALCIUM 40 MG TABLET PO SCH (10:10)
[2018-12-16] MEDS: ASPIRIN 81 MG TABLET, CHEWABLE PO SCH (10:10)
[2018-12-16] MEDS: FAMOTIDINE 20 MG TABLET PO SCH ×2 (10:10→23:06)
[2018-12-16] MEDS: METOPROLOL TARTRATE 25 MG TABLET PO SCH ×2 (10:10→18:28)
[2018-12-16] MEDS: ENOXAPARIN SODIUM INJ 150 MG/1 ML DISP.SYRIN SUBCUT SCH ×2 (10:12→23:06)
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
[2018-12-16 12:52] LABS: CREATINE KINASE MB 0.76 ng/mL (<4.55); TROPONIN I 0.078 ng/mL
--- NOTE | 2018-12-16 22:33 | Progress Note ---
Provider Note Provider Note: CARDIOLOGY PROGRESS NOTE by Dr. Alona Beavers on 12/16/2018. SUBJECTIVE: The patient denies any chest pain or discomfort. There is no shortness of breath. There is no PND orthopnea. The patient remains in sinus rhythm with no recurrence of atrial fibrillation or SVT. There is no ventricular arrhythmia seen on the monitor. There is no leg edema. The patient's troponin is trending down. PHYSICAL EXAMINATION: The patient is moderately obese. He is well-groomed. He is in no acute distress. Selected Entries 12/16/18 07:20 Temperature 97.8 F Temperature Oral Source Pulse Rate 71 Respiratory 16 Rate Blood Pressure 119/99 H Blood Pressure 105 Mean BP Location Left Arm BP Position Supine O2 Sat by Pulse 96 Oximetry Oxygen Delivery Room Air Method HEAD: Is atraumatic normocephalic. EYES: Pupils are equal round regular reactive to light accommodation. Extraocular movements are normal. There is no conjunctival pallor. There is no scleral icterus. ENT is negative. NECK: Is supple. There is no JVD. Carotids equal there is no bruit. There is no lymph adenopathy. There is no goiter. There is no accessory muscles of respiration use. Trachea central. LUNGS: Clear to auscultation percussion, without any rhonchi rales or wheezing. There is no chest wall tenderness. HEART: S1-S2 is heard S1 is of normal intensity. There is no S3 gallop. There is no S4 gallop. There is systolic murmur left sternal border and the apex there is no rub. ABDOMEN: Soft. Nontender. There is no hepatosplenomegaly. Bowel sounds are well heard. EXTREMITIES: Femorals are well felt. There is no femoral bruits. Leg pulses are well felt. There is no DVT or cellulitis. There is no pedal edema. There is no cyanosis or clubbing. There is no calf tenderness. [employer]ER: The patient is conscious awake alert oriented x3 with no focal deficit. PSYCHIATRIC: The patient judgment and insight are intact his affect is normal. 12/14/18 12/15/18 12/16/18 12:22 23:24 05:14 WBC 6.6 Hgb 15.8 Hct 45.5 MCV 85 MCH 29.7 MCHC 34.8 RDW 12.6 Plt Count 215 PT 12.5 INR 0.89 APTT 29.4 Sodium Potassium Chloride Carbon Dioxide Anion Gap BUN Creatinine Est GFR (Non-Af Amer) Glucose Calcium Total Bilirubin Direct Bilirubin Neonat Total Bilirubin Neonat Direct Bilirubin Neonat Indirect Bili AST ALT Alkaline Phosphatase Creatine Kinase CK-MB (CK-2) 1.03 Troponin I 0.152 Total Protein Albumin 12/16/18 12/16/18 12/16/18 05:14 05:14 12:02 WBC Hgb Hct MCV MCH MCHC RDW Plt Count PT INR APTT Sodium 143.1 Potassium 4.6 Chloride 111 H Carbon Dioxide 23 Anion Gap 9 BUN 19 Creatinine 0.93 Est GFR (Non-Af Amer) > 60 Glucose 98 Calcium 8.9 Total Bilirubin 1.1 Direct Bilirubin 0.2 Neonat Total Bilirubin Not Reportable Neonat Direct Bilirubin Not Reportable Neonat Indirect Bili Not Reportable AST 19 ALT 29 Alkaline Phosphatase 72 Creatine Kinase 81 74 CK-MB (CK-2) 0.84 Troponin I 0.143 Total Protein 6.6 Albumin 3.9 12/16/18 12:02 WBC Hgb Hct MCV MCH MCHC RDW Plt Count PT INR APTT Sodium Potassium Chloride Carbon Dioxide Anion Gap BUN Creatinine Est GFR (Non-Af Amer) Glucose Calcium Total Bilirubin Direct Bilirubin Neonat Total Bilirubin Neonat Direct Bilirubin Neonat Indirect Bili AST ALT Alkaline Phosphatase Creatine Kinase CK-MB (CK-2) 0.76 Troponin I 0.078 Total Protein Albumin IMPRESSION/RECOMMENDATION: 1. Chest pain: Resolved. Note that the patient biomarkers are elevated. The patient does have multiple risk factors for coronary artery disease namely his lifestyle, smoking, and family history of coronary artery disease. We discussed invasive versus noninvasive testing with patient. The patient is already made up his mind to have a cardiac catheterization. Cath teaching video will be shown. The risks benefits and complications of cardiac catheterization, and conscious sedation have been reviewed discussed. 2. Elevated troponin: Secondary to supply demand mismatch versus non-ST elevation [place]. 3. Paroxysmal supraventricular tachycardia/paroxysmal atrial fibrillation: Now in sinus rhythm. Medications reviewed. We will keep the patient n.p.o. for cardiac catheterization in the morning the case has been discussed with Dr. Gus Kimball, who will perform the cardiac catheterization. Medical decision making is of high complexity. 40 minutes spent on this patient, with more than 50% of time spent in direct patient care. All questions are answered. The patient is a full code. His is his surrogate healthcare decision maker
[2018-12-17] MEDS ORDERED: DIAZEPAM 5 MG TABLET PO PRN (05:00)
[2018-12-17] MEDS ORDERED: RADIAL COCKTAIL SYRINGE 10 ML IV PRN ×4 (05:00)
[2018-12-17] MEDS ORDERED: NORMAL SALINE 1000 ML 1,000 ML IV PRN (06:18)
[2018-12-17] MEDS ORDERED: LIDOCAINE 1% INJ-PF (10 MG/ML) 30 ML SDV ONE (07:19)
[2018-12-17] MEDS ORDERED: HEPARIN SODIUM,PORCINE/NS/PF 2,000 UNIT/1,000 ML RTUINJ IV ONE (07:20)
[2018-12-17] MEDS ORDERED: HEPARIN SOD (PORCINE) 1,000 UNIT/ML 10 ML VIAL ONE (07:50)
[2018-12-17] MEDS ORDERED: FENTANYL CITRATE INJ/PF 100 MCG/2 ML AMPUL ONE (07:50)
[2018-12-17] MEDS ORDERED: MIDAZOLAM 2 MG/2 ML INJ ONE (07:50)
[2018-12-17] MEDS ORDERED: DIPHENHYDRAMINE HCL 50 MG/ML VIAL ONE (08:06)
--- NOTE | 2018-12-17 10:17 | Operative Report ---
Operative Report DATE OF SURGERY: 12/17/18 PREOPERATIVE DIAGNOSIS: Recurrent chest pain POSTOPERATIVE DIAGNOSIS: Noncritical coronary artery disease OPERATION: Left heart catheterization coronary angiography left ventriculography SURGEON: GURPREET EDOUARD ANESTHESIA: Moderate Sedation PROCEDURE: After informed consent the patient was brought to the cardiac catheterization lab the right wrist was prepared in the usual sterile and draped manner and anesthetized with 1% lidocaine solution. Hemovac access was gained without difficulty using micropuncture technique. Intra-arterial cocktail of verapamil and lidocaine were was administered and the patient was anticoagulated with 4000 units of heparin. Selective coronary angiography and left ventriculography were performed. Conscious sedation was initiated monitored and remained pain during the procedure with a start time of 828 and a completion time of 912 for conscious sedation time of 44 minutes a total of 1 mg of Versed and 75 mcg of fentanyl were administered for conscious sedation Hemodynamic data: Aortic pressure at the beginning of the case is 120/77 Left ventricular pressure is 123/7 Post ventriculography LV pressure is 130/8 Aortic pressure on pullback is 127/80 there is no gradient across the aortic valve Coronary angiography: Left main left main is normal Circumflex the circumflex coronary gives rise to 2 obtuse marginal branches there are luminal irregularities but no critical or focal narrowings are seen LAD the left anterior descending is a transapical vessel there are luminal irregularities with a 20-30% stenosis in the midportion of the LAD between the first diagonal and second and third septal perforators no critical or focal obstructive lesions are seen Right coronary artery: The right coronary artery has a reversed 3 configuration is a dominant vessel supplying the PDA and posterolateral branches once again luminal irregularities are seen without high-grade critical or focal stenoses Left ventriculography: Left ventriculography is performed in the standard [place] projection. Regional wall motion is normal left ventricular function is normal there is no evidence of mitral regurgitation. The ascending aortic root is normal in configuration and appearance. Impression: 1. Normal left ventricular function 2. Noncritical coronary disease 3. No evidence of significant valvular heart disease 4. Normal hemodynamic data 5. Probable sleep apnea
[2018-12-17] MEDS: ENOXAPARIN SODIUM INJ 150 MG/1 ML DISP.SYRIN SUBCUT SCH (10:34)
[2018-12-17] MEDS: METOPROLOL TARTRATE 25 MG TABLET PO SCH ×2 (10:55→17:03)
[2018-12-17] MEDS: ASPIRIN 81 MG TABLET, CHEWABLE PO SCH (10:56)
[2018-12-17] MEDS: ATORVASTATIN CALCIUM 40 MG TABLET PO SCH (10:56)
[2018-12-17] MEDS: FAMOTIDINE 20 MG TABLET PO SCH (10:56)
[2018-12-17 18:19] VITALS: BP 132/79
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
== END 2018-12-17 18:51 | disposition home or self-care (01) | DRG 282 ==
LOC: ER 11:58 → EH 16:31 → 3N 12-15 00:25
PROVIDERS: ADMIT Family Medicine; ATTEND Family Medicine
PROC: 4A023N7 Measurement of Cardiac Sampling and Pressure, Left Heart, Percutaneous Approach (ICD-10-PCS; principal; 2018-12-17)
PROC: B2051ZZ Plain Radiography of Left Heart using Low Osmolar Contrast (ICD-10-PCS; 2018-12-17)
PROC: B2011ZZ Plain Radiography of Multiple Coronary Arteries using Low Osmolar Contrast (ICD-10-PCS; 2018-12-17)
DX: I21.4 Non-ST elevation (NSTEMI) myocardial infarction (principal); I25.10 Atherosclerotic heart disease of native coronary artery without angina pectoris; I48.91 Unspecified atrial fibrillation; F17.210 Nicotine dependence, cigarettes, uncomplicated; E66.9 Obesity, unspecified; R74.8 Abnormal levels of other serum enzymes; I10 Essential (primary) hypertension; Z82.49 Family history of ischemic heart disease and other diseases of the circulatory system; Z86.718 Personal history of other venous thrombosis and embolism; Z86.711 Personal history of pulmonary embolism; Z83.3 Family history of diabetes mellitus; Z91.018 Allergy to other foods; Z88.8 Allergy status to other drugs, medicaments and biological substances
CPT/HCPCS: 36415; 71045; 71275; 80053; 80061; 80307; 81001; 82550; 82553; 83036; 83690; 83735; 84439; 84443; 84484; 85025; 85027; 85610; 85730; 93005; 93010; 93306; 93458; 96374; 96375; 99285; J0153; J1200; J1644; J2250; J3010; J3490; J7030

== ENCOUNTER → 2019-01-03 | Outpatient (CLI) | payer BC ==
[2019-01-03 11:03] LABS: A TYPE INFLUENZA AG NEGATIVE (NEGATIVE); B INFLUENZA AG NEGATIVE (NEGATIVE)
== END ==
LOC: LAB 10:15
PROVIDERS: ATTEND Physician Assistant
DX: R50.9 Fever, unspecified (principal)
CPT/HCPCS: 87804

== ENCOUNTER 2019-08-14 11:34 | Emergency (ER) | payer BC ==
[2019-08-14 11:38] VITALS: BP 153/108
[2019-08-14] MEDS ORDERED: KETOROLAC TROMETHAMINE 60 MG/2 ML SDV IM ONE (11:58)
--- NOTE | 2019-08-14 11:59 | ER Document Report ---
ED Medical Screen (RME) - General Chief Complaint: Back Pain Stated Complaint: BACK PAIN Time Seen by Provider: 08/14/19 11:56 Mode of Arrival: Ambulatory Information source: Patient Notes: Patient presents emergency department with complaints of low back pain mostly on the left side for the past couple days rating it 7 out of 10. Denies urinary bowel incontinence or retention. Reports last bowel movement was this morning normal. Denies past medical history of injury to his back. Reports he lifted something heavy. No trauma. No erythema warmth or swelling to the back. I have greeted and performed a rapid initial assessment of this patient. A comprehensive ED assessment and evaluation of the patient, analysis of test results and completion of the medical decision making process will be conducted by additional ED providers. Dictation of this chart was performed using voice recognition software; therefore, there may be some unintended grammatical errors. TRAVEL OUTSIDE OF THE [place] IN LAST 30 DAYS: No - Related Data Allergies/Adverse Reactions: diphenhydramine HCl [From Benadryl] Allergy (Verified 12/14/18 14:49) strawberry Allergy (Verified 12/14/18 14:49) Past Medical History - Social History Chew tobacco use (# tins/day): No Frequency of alcohol use: Rare Drug Abuse: None - Past Medical History Cardiac Medical History: Reports: Hx DVT, Hx Hypertension - Off-and-on, no medication, Hx Pulmonary Embolism Pulmonary Medical History: Reports: Hx Asthma Renal/ Medical History: Denies: Hx Peritoneal Dialysis Psychiatric Medical History: Denies: Hx Depression - Immunizations Hx Diphtheria, Pertussis, Tetanus Vaccination: Yes Physical Exam - Vital signs Vitals: Temp Pulse Resp BP Pulse Ox 97.5 F 90 18 153/108 H 96 08/14/19 11:37 08/14/19 11:37 08/14/19 11:37 08/14/19 11:37 08/14/19 11:37 Course - Vital Signs Vital signs: Temp Pulse Resp BP Pulse Ox 97.5 F 90 18 153/108 H 96 08/14/19 11:37 08/14/19 11:37 08/14/19 11:37 08/14/19 11:37 08/14/19 11:37
--- NOTE | 2019-08-14 13:53 | ER Document Report ---
HPI - HPI Time Seen by Provider: 08/14/19 11:56 Pain Level: 4 Notes: Patient is a 38-year-old male with history of hypertension who presents complaining of left low back pain over the past couple days after twisting and appropriately when he was trying to move a freezer. Patient states the pain has been relatively constant since then that is worse with bending and twisting movements. The pain does not radiate. He is able to eat and drink without difficulty. He is urinating normally and having normal bowel movements. No history of spinal abscess, diabetes, or back surgery. No history of IV drug abuse. No other concerns or complaints. Denies any headache, fever, URI, sore throat, chest pain, palpitations, syncope, cough, shortness of breath, wheeze, dyspnea, abdominal pain, nausea/vomiting/diarrhea, urinary retention, dysuria, hematuria, loss of control of bowel or bladder, numbness/tingling, saddle anesthesia, muscle paralysis/weakness, or rash. - ROS Systems Reviewed and Negative: Yes All other systems reviewed and negative - REPRODUCTIVE Reproductive: DENIES: : Past Medical History - General Information source: Patient - Social History Smoking Status: Current Every Day Smoker Chew tobacco use (# tins/day): No Frequency of alcohol use: Rare Drug Abuse: None Family History: CAD, CVA, DM, Hyperlipidemia, Hypertension Patient has suicidal ideation: No Patient has homicidal ideation: No - Past Medical History Cardiac Medical History: Reports: Hx DVT, Hx Hypertension - Off-and-on, no medication, Hx Pulmonary Embolism Pulmonary Medical History: Reports: Hx Asthma Renal/ Medical History: Denies: Hx Peritoneal Dialysis Psychiatric Medical History: Denies: Hx Depression - Immunizations Hx Diphtheria, Pertussis, Tetanus Vaccination: Yes Vertical Provider Document - CONSTITUTIONAL Agree With Documented VS: Yes Notes: PHYSICAL EXAMINATION: GENERAL: Well-appearing, well-nourished and in no acute distress. LUNGS: Breath sounds clear to auscultation bilaterally and equal. No wheezes rales or rhonchi. HEART: Regular rate and rhythm without murmurs, rubs, gallops. ABDOMEN: Soft, nontender, nondistended abdomen. No guarding, no rebound. Normal bowel sounds present. No CVA tenderness bilaterally. No obvious pulsatile mass Musculoskeletal: LE's b/l: FROM to passive/active. Strength 5+/5. No deficits noted. No bony tenderness of extremities. Back: FROM to passive/active. Strength 5+/5. No vertebral point tenderness, stepoffs, or deformities. No other bony tenderness, erythema, swelling, or ecchymosis. SLR negative b/l. + Reproducible tenderness to the left L- paraspinal mm. Mild spasming. No SI jt tenderness. No foot drop Extremities: No cyanosis, clubbing, or edema b/l. Peripheral pulses 2+. Capillary refill less than 2 seconds. NEUROLOGICAL: Normal speech, normal gait. Normal sensory, motor exams. Reflexes 2+ b/l. PSYCH: Normal mood, normal affect. SKIN: Warm, Dry, normal turgor, no rashes or lesions noted. - INFECTION CONTROL TRAVEL OUTSIDE OF THE [place] IN LAST 30 DAYS: No Course - Re-evaluation Re-evalutation: 08/14/19 13:55 Patient is an afebrile, well-hydrated, 38-year-old male who presents to the ED with low back pain, possible strain/sprain. Vitals are acceptable. PE is otherwise unremarkable for any focal neurological deficits. Patient was given Toradol. He has no significant tachycardia, tachypnea, or hypoxia. He is nontoxic-appearing and is tolerating p.o. without difficulties. There are no signs of infection. No other red flag symptoms noted. No other labs or imaging warranted at this time based on H&P. Low suspicion for any meningitis, fracture, expanding/ruptured AAA, cauda equina syndrome, epidural mass lesion/abscess, herniated disc causing severe spinal stenosis, or other systemic infection at this time. Patient is aware that his condition can change from initial presentation and that he needs monitor symptoms closely for any acute changes. I will send him home with a prescription for Robaxin and naproxen. Conservative measures otherwise for symptoms. Recheck with your PCM in 3-5 days. Consider consult with orthopedic/physical therapy. Return to the ED with any worsening/concerning symptoms otherwise as reviewed discharge. Patient is in agreement. - Vital Signs Vital signs: Temp Pulse Resp BP Pulse Ox 97.5 F 90 18 153/108 H 96 08/14/19 11:37 08/14/19 11:37 08/14/19 11:37 08/14/19 11:37 08/14/19 11:37 Discharge - Discharge Clinical Impression: Left low back pain Qualifiers: Chronicity: acute Sciatica presence: without sciatica Qualified Code(s): M54.5 - Low back pain Condition: Stable Disposition: HOME, SELF-CARE Instructions: Low Back Pain ([facility]), Muscle Relaxers ([facility]) Additional Instructions: Rest, Ice Tylenol/ibuprofen as needed Light stretches daily Strength exercises as able Moist heat and massage may help F/u with your PCP in 3-5 days for a recheck Consider consult(s) with Orthopedics/physical therapy for ongoing/worsening symptoms Return to the ED with any worsening symptoms and/or development of fever, hea dache, chest pain, palpitations, syncope, shortness of breath, trouble breathing, abdominal pain, n/v/d, blood in stool/urine, loss of control of bowel/bladder, urinary retention, muscle weakness/paralysis, saddle anesthesia, numbness/tingling, or other worsening symptoms that are concerning to you. Prescriptions: Naproxen 500 mg PO BID #14 tablet Methocarbamol [Robaxin 750 mg Tablet] 750 mg PO TID PRN #10 tablet PRN Reason: Forms: Elevated Blood Pressure, Smoking Cessation Education, Return to Work Referrals: [facility] [Provider Group] - Follow up as needed
== END 2019-08-14 14:00 | disposition home or self-care (01) ==
LOC: ER 11:34
DX: M54.5 Low back pain (principal); X50.1XXA Overexertion from prolonged static or awkward postures, initial encounter; Y93.89 Activity, other specified; R25.2 Cramp and spasm; F17.200 Nicotine dependence, unspecified, uncomplicated; I10 Essential (primary) hypertension; J45.909 Unspecified asthma, uncomplicated
CPT/HCPCS: 99283; 96372; J1885

== ENCOUNTER 2020-06-26 10:06 | Emergency (ER) | payer BC ==
--- NOTE | 2020-06-26 10:27 | ER Document Report ---
HPI - HPI Time Seen by Provider: 06/26/20 10:20 Pain Level: 2 Notes: 39 yr old male presents today with complaints of left foot and ankle pain which has been bothering him for the last couple months because he thinks something fell on his foot but never had it checked out but reports that over the last few days it has become progressively worse. Has not tried any [id number] medications such as Tylenol or ibuprofen. Is not tried any ice or elevation. Able to bear full weight. Reports pain is 2 out of 5, throbbing at times. Worse with movement, better at rest. Denies fevers, chills, chest pain,palpitations, shortness of breath, dyspnea, nausea, vomiting, diarrhea, abdominal pain, hematuria,blurred vision, double vision, loss of vision, speech changes, LH, dizziness, syncope, headaches, wheezing, ST, URI, neck pain, weakness, bowel or bladder dysfunction, saddle anesthesia, numbness or tingling in bilateral upper or lower extremities equally, muscle paralysis, weakness in bilateral upper or lower extremities equally or rash. Denies IV drug use. MEDICATIONS: I agree with the patient medications as charted by the RN. ALLERGIES: I agree with the allergies as charted by the RN. PAST MEDICAL HISTORY/PAST SURGICAL HISTORY: Reviewed and agree as charted by RN. SOCIAL HISTORY: Reviewed and agree as charted by RN. FAMILY HISTORY: No significant familial comorbid conditions directly related to patient complaint EXAM: Reviewed vital signs as charted by RN. REVIEW OF SYSTEMS:reviewed vital signs by RN CONSTITUTIONAL : Denies fever, chills, or sweats. Denies recent illness. EENT: Denies eye, ear, throat, or mouth pain or symptoms. Denies nasal or sinus congestion or discharge. Denies throat, tongue, or mouth swelling or difficulty swallowing. CARDIOVASCULAR: Denies chest pain. Denies palpitations or racing or irregular heart beat. Denies ankle edema. RESPIRATORY: Denies cough, cold, or chest congestion. Denies shortness of breath, difficulty breathing, or wheezing. GASTROINTESTINAL: Denies abdominal pain or distention. Denies nausea, vomiting, or diarrhea. Denies blood in vomitus, stools, or per rectum. Denies black, tarry stools. Denies constipation. GENITOURINARY: Denies difficulty urinating, painful urination, burning, frequency, blood in urine, or discharge. MUSCULOSKELETAL: Reports left ankle and foot pain. denies back or neck pain or stiffness. Denies joint pain or swelling. SKIN: Denies rash, lesions or sores. HEMATOLOGIC : Denies easy bruising or bleeding. LYMPHATIC: Denies swollen, enlarged glands. NEUROLOGICAL: Denies confusion or altered mental status. Denies passing out or loss of consciousness. Denies dizziness or lightheadedness. Denies headache. Denies weakness or paralysis or loss of use of either side. Denies problems with gait or speech. Denies sensory loss, numbness, or tingling. Denies seizures. PSYCHIATRIC: Denies anxiety or stress. Denies depression, suicidal ideation, or homicidal ideation. ALL OTHER SYSTEMS REVIEWED AND NEGATIVE. Dictation was performed using [email or web address] voice recognition software PHYSICAL EXAMINATION: GENERAL: Well-appearing, well-nourished and in no acute distress. HEAD: Atraumatic, normocephalic. EYES: Pupils equal round and reactive to light, extraocular movements intact, sclera anicteric, conjunctiva are normal. ENT: Nares patent, oropharynx clear without exudates. Moist mucous membranes. NECK: Normal range of motion, supple without lymphadenopathy LUNGS: Breath sounds clear to auscultation bilaterally and equal. No wheezes rales or rhonchi. HEART: Regular rate and rhythm without murmurs ABDOMEN: Soft, nontender, nondistended abdomen. No guarding, no rebound. No masses appreciated. Musculoskeletal: Normal range of motion, no pitting or edema. No cyanosis. Left foot with STS and tenderness on 2nd and 3rd metatarsal bones with palpation. Unable to palpate a step-off. No open lesions. squeeze test negative. dtr +2 BLE. Limited APROM. distal pulses + 2 in BUE. full motor and sensory function. No vascular compromise. lateral aspect of left ankle with swelling, no tenderness w/ inversion, eversion, flexion or extension. No noted lacerations, lesions, ulcers or break in the skin. NEUROLOGICAL: Cranial nerves grossly intact. Normal speech, normal gait. Normal sensory, motor exams PSYCH: Normal mood, normal affect. SKIN: Warm, Dry, normal turgor, no rashes or lesions noted. - REPRODUCTIVE Reproductive: DENIES: : - DERM Skin Color: Normal Past Medical History - Social History Smoking Status: Never Smoker Family History: CAD, CVA, DM, Hyperlipidemia, Hypertension - Past Medical History Cardiac Medical History: Reports: Hx DVT, Hx Hypertension - Off-and-on, no medication, Hx Pulmonary Embolism Pulmonary Medical History: Reports: Hx Asthma Renal/ Medical History: Denies: Hx Peritoneal Dialysis Psychiatric Medical History: Denies: Hx Depression - Immunizations Hx Diphtheria, Pertussis, Tetanus Vaccination: Yes Vertical Provider Document - INFECTION CONTROL TRAVEL OUTSIDE OF THE [place] IN LAST 30 DAYS: No Course - Re-evaluation Re-evalutation: 06/26/20 11:53 Afebrile vital stable no distress. Nurses notes reviewed. X-ray of left foot and ankle negative for any acute fracture dislocation noted osteoarthritis. Discussed with patient that he is likely having an arthritic flareup. Patient does have a dermatitis to anterior aspect of left foot, no surrounding erythema induration warmth to touch. Will prescribe steroid ointment to put on twice a day and advised him to take Benadryl as needed. Orthopedic referral given as well as primary care provider. Advised to take naproxen as needed for pain. Discussed using supportive shoes. After performing a Medical Screening Examination, I estimate there is LOW risk for OPEN FRACTURE, COMPARTMENT SYNDROME, DEEP VENOUS THROMBOSIS, ACUTE TENDON RUPTURE, or NEUROVASCULAR INJURY thus I consider the discharge disposition reasonable. I have reevaluated this patient multiple times and no significant life threatening changes are noted. The patient and I have discussed the diagnosis and risks, and we agree with discharging home to closely follow-up with their primary doctor or the referral orthopedist with the understanding that symptoms and presentations can change. We also discussed returning to the Emergency Department immediately if new or worsening symptoms occur. We have discussed the symptoms which are most concerning (e.g., changing or worsening pain, numbness, weakness) that necessitate immediate return - Vital Signs Vital signs: Temp Pulse Resp BP Pulse Ox 97.4 F 80 20 147/100 H 96 06/26/20 10:06/26/20 10:06/26/20 10:06/26/20 10:06/26/20 10:09 Discharge - Discharge Clinical Impression: Left foot pain, Left ankle swelling, Dermatitis of left foot Condition: Stable Disposition: HOME, SELF-CARE Instructions: Contact Dermatitis ([facility]), Exercises for the Foot Muscles ([facility]), Ice & Elevation ([facility]), Sprain ([facility]) Additional Instructions: X-ray of your left foot and ankle negative for any acute fracture dislocation. I did prescribe you steroid cream to put on the rash of your foot, apply twice a day for the next week or so. Please avoid scratching. You can take [id number]-mnedvva Benadryl to help with itching. Please follow-up with regional extension service specialist and primary care provider next 24 to 40 hours as needed. Return immediately for any new or worsening symptoms. Follow up with primary care provider, call tomorrow to make followup appointment. Prescriptions: Naproxen 500 mg PO BID #10 tablet Triamcinolone Acetonide 30 gm TP BID #30 oint..gm. Referrals: ANDRES MARTINEZ MD [ACTIVE STAFF] - Follow up as needed ANATOLY CUBA MD [ACTIVE STAFF] - Follow up as needed
--- NOTE | 2020-06-26 10:57 | RADIOLOGY REPORT (SQ) ---
EXAM DESCRIPTION: ANKLE LEFT COMPLETE; FOOT LEFT COMPLETE IMAGES COMPLETED DATE/TIME: 06/26/2020 9:33 am REASON FOR STUDY: foot/ankle pain/swelling x 1m, worse over few days COMPARISON: None. NUMBER OF VIEWS: Six views. TECHNIQUE: AP, lateral, and oblique radiographic images acquired of the left foot and ankle. LIMITATIONS: None. FINDINGS: MINERALIZATION: Normal. BONES: No acute fracture or dislocation. No worrisome bone lesions. There are small marginal osteop hytes at the dorsal aspect of the midfoot. JOINTS: No effusions. SOFT TISSUES: No soft tissue swelling. No foreign body. OTHER: No other significant finding. IMPRESSION: No acute fracture or dislocation of the left ankle or foot. 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 TECHNICAL DOCUMENTATION: JOB ID: [id number] 2010 [employer]- All Rights Reserved Reading location - IP/workstation name: [email or web address]
--- NOTE | 2020-06-26 10:57 | RADIOLOGY REPORT (SQ) ---
EXAM DESCRIPTION: ANKLE LEFT COMPLETE; FOOT LEFT COMPLETE IMAGES COMPLETED DATE/TIME: 06/26/2020 9:33 am REASON FOR STUDY: foot/ankle pain/swelling x 1m, worse over few days COMPARISON: None. NUMBER OF VIEWS: Six views. TECHNIQUE: AP, lateral, and oblique radiographic images acquired of the left foot and ankle. LIMITATIONS: None. FINDINGS: MINERALIZATION: Normal. BONES: No acute fracture or dislocation. No worrisome bone lesions. There are small marginal osteop hytes at the dorsal aspect of the midfoot. JOINTS: No effusions. SOFT TISSUES: No soft tissue swelling. No foreign body. OTHER: No other significant finding. IMPRESSION: No acute fracture or dislocation of the left ankle or foot. 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 TECHNICAL DOCUMENTATION: JOB ID: [id number] 2010 [employer]- All Rights Reserved Reading location - IP/workstation name: [email or web address]
[2020-06-26] MEDS ORDERED: IBUPROFEN 800 MG TABLET PO ONE (11:08)
[2020-06-26 11:30] VITALS: BP 143/97
== END 2020-06-26 11:26 | disposition home or self-care (01) ==
LOC: ER 10:06
DX: L30.9 Dermatitis, unspecified (principal); M79.672 Pain in left foot; M25.572 Pain in left ankle and joints of left foot; M79.89 Other specified soft tissue disorders
CPT/HCPCS: 99283